=== PATIENT | female | born 1980 | race Caucasian/White ===

== ENCOUNTER 2017-01-13 20:12 | Emergency (ER) | payer SELFPAY ==
[2017-01-13] MEDS ORDERED: Acetaminophen 500 MG TAB ONE (20:46)
[2017-01-13] MEDS ORDERED: Ondansetron ODT 4 MG TAB ONE (20:46)
[2017-01-13] MEDS ORDERED: Ondansetron HCl/PF 4 MG/2 ML Vial ONE (21:00)
[2017-01-13 21:03] LABS: #Eosinphils 0.1 thou/uL (0.0-0.7); #Lymphocytes 2.2 thou/uL (1.20-3.40); #Monocytes 0.4 thou/uL (0.11-0.59); #Neutrophils 10.5 thou/uL (1.40-6.50); %Eosinophils 0.9 % (0.0-10.0); %Lymphocytes 16.4 % (21.0-51.0); %Monocytes 2.9 % (0.0-10.0); Hematocrit 44.5 % (36.0-47.0); Mean Platelet Volume 6.4 fL (7.4-10.4); Red Blood Cell (RBC) Count 5.34 mill/uL (4.20-5.40); White Blood Cell (WBC) Count 13.2 thou/uL (4.8-10.8)
[2017-01-13 21:27] LABS: ALT (SGPT) 69 U/L (8-55); AST (SGOT) 59 U/L (5-34); Alkaline Phosphatase 115 U/L (40-150); Anion Gap 14 mmol/L (10-20); BUN (Urea Nitrogen) 6 mg/dL (7.0-18.7); Bilirubin, Total 1.6 mg/dL (0.2-1.2); Calc. Creatinine Clearance 0 mL/min (70-130); Calcium 9.8 mg/dL (7.8-10.44); Carbon Dioxide 27 mmol/L (22-29); Chloride 101 mmol/L (98-107); Estimated GFR-MDRD 87; Globulin 3.9 g/dL (2.4-3.5); Lipase 16 U/L (8-78); Protein, Total 8.2 g/dL (6.0-8.3)
[2017-01-13] MEDS ORDERED: Ketorolac Tromethamine 30 MG/ML VIAL ONE (21:52)
--- NOTE | 2017-01-13 23:51 | ULT ---
HISTORY: Right upper quadrant pain. RIGHT UPPER QUADRANT GALLBLADDER ULTRASOUND: 01/13/17 Multiple longitudinal and transverse images of the right upper quadrant of the abdomen is obtained u sing a multihertz curvilinear transducer. Real time and color flow images are used to evaluate the r ight upper quadrant. The liver is somewhat enlarged and demonstrates fibrofatty changes. The liver measures 21.6 cm in th e mid clavicular line. No evidence of hepatic parenchymal masses or lesions seen. Normal gallbladder is visualized. No evidence of gallstones seen. Common bile duct is of normal size measuring 4.4 mm. No evidence of gallbladder wall thickening seen. The pancreas is suboptimally visualized due to overlying bowel gas. Normal right kidney is seen measuring 11.7 cm from pole to pole. Color flow and doppler sonography i s also used to evaluate the liver. A normal hepatopedal flow is seen in the portal system. IMPRESSION: Normal right upper quadrant ultrasound. POS: IVY
== END 2017-01-13 23:25 | disposition home or self-care (01) ==
LOC: ERS 20:12
DX: E86.0 Dehydration (principal); R11.2 Nausea with vomiting, unspecified; R10.9 Unspecified abdominal pain; E11.9 Type 2 diabetes mellitus without complications; E66.9 Obesity, unspecified; F17.210 Nicotine dependence, cigarettes, uncomplicated
CPT/HCPCS: 76705; 80053; 83690; 84703; 85025; 96361; 96374; 96375; J1885; J2405; Q0162

== ENCOUNTER 2017-06-01 08:30 | Emergency (ER) | payer SELFPAY ==
[2017-06-01] MEDS ORDERED: Lidocaine 1% w/Epinephrine 1:100K 20 ML VIAL ONE (08:48)
[2017-06-01] MEDS ORDERED: Ibuprofen 800 MG TAB ONE (09:15)
== END 2017-06-01 13:25 | disposition home or self-care (01) ==
LOC: ERS 08:30
DX: L02.211 Cutaneous abscess of abdominal wall (principal); E11.9 Type 2 diabetes mellitus without complications; E66.9 Obesity, unspecified; F17.210 Nicotine dependence, cigarettes, uncomplicated; Z79.84 Long term (current) use of oral hypoglycemic drugs; Z79.899 Other long term (current) drug therapy
CPT/HCPCS: 10060; J2001

== ENCOUNTER 2017-06-03 07:19 | Emergency (ER) | payer SELFPAY ==
[2017-06-03] MEDS ORDERED: Lidocaine 1% w/Epinephrine 1:100K 20 ML VIAL ONE (07:52)
== END 2017-06-03 09:04 | disposition home or self-care (01) ==
LOC: ERS 07:19
DX: L02.211 Cutaneous abscess of abdominal wall (principal); E11.9 Type 2 diabetes mellitus without complications; E66.9 Obesity, unspecified; F17.210 Nicotine dependence, cigarettes, uncomplicated; Z79.84 Long term (current) use of oral hypoglycemic drugs; Z79.899 Other long term (current) drug therapy
CPT/HCPCS: 10060; J2001